=== PATIENT | female | born 1990 | race Caucasian/White ===

== ENCOUNTER 2019-10-16 13:28 | Emergency (ER) | payer MEDICAID ==
[~2019-10-16 13:28] MED LIST: ACCUPRIL5 MG PO; AMOXICILLIN500 MG OR; BUSPAR10 M1 OR; CELEXA10 MG PO; CIPROFLOXACN500 MG PO; CITALOPRAM20 MG PO; CLEOCIN300 MG OR; CYCLOBENZAPR10 MG PO; GABAPENTIN300 MG PO; LORTAB 10 PO; NAPROSYN500 MG PO; NO HOME MEDS; PENICILLN VK500 MG OR; PENICILLN VK500 MG PO; PYRIDIUM200 MG PO; TRAZODONE100 MG PO; TYLENOL # 31 TA1 PO; ULTRAM50 M1 PO; ULTRAM50 MG OR; ULTRAM50 MG PO; ZITHROMAX500 MG PO
[2019-10-16 14:40] LABS: URINE BILIRUBIN - DIPSTICK NEGATIVE (NEGATIVE); URINE BLOOD DIPSTICK NEGATIVE (NEGATIVE); URINE COLOR YELLOW; URINE GLUCOSE - DIPSTICK NEGATIVE (NEGATIVE); URINE KETONE NEGATIVE (NEGATIVE); URINE LEUK ESTERASE NEGATIVE (NEGATIVE); URINE NITRITE - DIPSTICK NEGATIVE (Negative); URINE PH 7.5 (4.5-8.0); URINE PROTEIN - DIPSTICK NEGATIVE (NEG-TRACE); URINE UROBILINOGEN - DIPSTICK 0.2 E.U./dL (0.2)
[2019-10-16 14:44] LABS: HEMATOCRIT 36.6 % (37.0-47.0); HEMOGLOBIN 11.8 g/dl (12.0-16.0); IMMATURE GRANULOCYTES 0.4 % (0.0-5.0); MEAN CELL VOLUME 92.2 fL CALC (80.0-100.0); MEAN CORPUSCULAR HGB 29.7 pG CALC (26.0-32.0); MEAN CORPUSCULAR HGB CONC 32.2 g/dL CAL (32.0-36.0); NEUT# 5.57 thou/uL (2.00-7.15); RED BLOOD COUNT 3.97 mill/uL (4.20-5.60); RED CELL DISTRI WIDTH 13.6 % (11.5-15.5)
[2019-10-16] MEDS ORDERED: PRENATAL + COMP1 PAK PO (15:30)
[2019-10-16 15:32] LABS: ALBUMIN 3.6 g/dL (3.2-5.0); ALKALINE PHOSPHATASE 37 u/l (38-126); BUN 6 mg/dL (7-17); BUN/CREATININE RATIO 17 (12-20 (CALC)); CARBON DIOXIDE 19 mmol/l (22-30); CHLORIDE 107 mmol/l (95-108); CREATININE 0.4 mg/dL (0.5-1.0); GFR > 60 ML/MIN (>=60 (CALC)); GFR FOR AFR.AMER. > 60 ML/MIN (>=60 (CALC)); LIPASE 89 u/l (23-300); POTASSIUM 4.2 mmol/l (3.5-5.1); SGOT/AST 16 u/l (14-36); TOTAL PROTEIN 6.9 g/dL (6.3-8.2)
[2019-10-16 15:35] LABS: ANION GAP 12 (6-22 (CALC)); BILIRUBIN, TOTAL 0.3 mg/dL (0.0-1.4); SODIUM 134 mmol/l (137-146)
[2019-10-16 15:54] VITALS: BP 104/67
== END 2019-10-16 16:04 | disposition home or self-care (01) ==
LOC: ED 13:28
PROVIDERS: Family Medicine
DX: O26.892 Other specified pregnancy related conditions, second trimester (principal); R10.30 Lower abdominal pain, unspecified; O99.332 Smoking (tobacco) complicating pregnancy, second trimester; F17.210 Nicotine dependence, cigarettes, uncomplicated; Z3A.14 14 weeks gestation of pregnancy

== ENCOUNTER 2020-08-08 12:52 | Emergency (ER) | payer MEDICAID ==
[~2020-08-08] VITALS: Ht 154.9 cm; Wt 65.5 kg
[~2020-08-08 12:52] MED LIST changes: +PRENATAL + COMP1 PAK PO
[2020-08-08 15:36] VITALS: BP 122/71
== END 2020-08-08 15:41 | disposition home or self-care (01) ==
LOC: ED 12:52
DX: R51.9 Headache, unspecified (principal); F17.200 Nicotine dependence, unspecified, uncomplicated

== ENCOUNTER 2020-09-13 | Emergency (ER) | payer MEDICAID ==
[2020-09-13] MEDS ORDERED: CYCLOBENZAPR5 MG PO (12:29)
== END 2020-09-13 13:30 | disposition home or self-care (01) ==
DX: M54.5 Low back pain (principal); F17.200 Nicotine dependence, unspecified, uncomplicated

== ENCOUNTER 2020-10-20 09:07 | Emergency (ER) | payer MEDICAID ==
[~2020-10-20] VITALS: Ht 154.9 cm; Wt 82.0 kg
[~2020-10-20 09:07] MED LIST changes: +CYCLOBENZAPR5 MG PO
[2020-10-20 10:15] VITALS: BP 122/76
== END 2020-10-20 11:44 | disposition home or self-care (01) ==
LOC: ED 09:07
DX: J06.9 Acute upper respiratory infection, unspecified (principal); F17.200 Nicotine dependence, unspecified, uncomplicated; Z20.822 Contact with and (suspected) exposure to COVID-19

== ENCOUNTER 2020-12-21 18:12 | Emergency (ER) | payer MEDICAID ==
[2020-12-21] MEDS ORDERED: KEFLEX500 MG PO (19:01)
[2020-12-21 19:08] VITALS: BP 109/71
== END 2020-12-21 19:08 | disposition home or self-care (01) ==
LOC: ED 18:12
DX: L02.415 Cutaneous abscess of right lower limb (principal); B95.61 Methicillin susceptible Staphylococcus aureus infection as the cause of diseases classified elsewhere; F17.210 Nicotine dependence, cigarettes, uncomplicated

== ENCOUNTER 2021-01-01 12:42 | Emergency (ER) | payer MEDICAID ==
[~2021-01-01 12:42] MED LIST changes: +KEFLEX500 MG PO
[2021-01-01 14:57] LABS: URINE BILIRUBIN - DIPSTICK NEGATIVE (NEGATIVE); URINE BLOOD DIPSTICK NEGATIVE (NEGATIVE); URINE COLOR YELLOW; URINE GLUCOSE - DIPSTICK NEGATIVE (NEGATIVE); URINE KETONE NEGATIVE (NEGATIVE); URINE PH 5.5 (4.5-8.0); URINE PROTEIN - DIPSTICK NEGATIVE (NEG-TRACE); URINE SPECIFIC GRAVITY >=1.030; URINE UROBILINOGEN - DIPSTICK 0.2 E.U./dL (0.2)
[2021-01-01 15:03] LABS: HCG SERUM/URINE (NEG/POS) NEGATIVE (NEGATIVE); URINE LEUK ESTERASE SMALL (NEGATIVE); URINE NITRITE - DIPSTICK NEGATIVE (Negative)
[2021-01-01 15:04] LABS: URINE BACTERIA FEW hpf; URINE SQUAMOUS EPITHELIAL CELL MANY EPI/hpf (0-FEW)
[2021-01-01 16:05] VITALS: BP 102/62
== END 2021-01-01 16:05 | disposition home or self-care (01) ==
LOC: ED 12:42
PROVIDERS: Emergency Medicine
DX: S29.012A Strain of muscle and tendon of back wall of thorax, initial encounter (principal); F17.200 Nicotine dependence, unspecified, uncomplicated; X58.XXXA Exposure to other specified factors, initial encounter; Z20.822 Contact with and (suspected) exposure to COVID-19